=== PATIENT | male | born 1945 | race Caucasian/White ===

== ENCOUNTER 2016-09-04 09:44 | Inpatient (IN) | payer OTHER ==
[2016-09-04] VITALS (38 sets, daily range): BP systolic 101–163; BP diastolic 57–109
[~2016-09-04] VITALS: Ht 175.3 cm; Wt 99.8 kg
--- NOTE | ~2016-09-04 | EKG ---
[address] [address] ELECTROCARDIOGRAM REPORT Name: ROSALVA DALTON Room #: 245-P ADM IN M.R.#: [id number] Admission: 09/04/16 Attend Phys: Roula Perales MD Discharge: Date of : 41 Report #: [id number] THIS REPORT FOR: //name// [facility] ED Test Date: 2016-09-04 Test Time: 09:48:19 Pat Name: ROSALVA DALTON Department: Room: [facility] Gender: M Warp Hauler: BRENDON : 1945 Requested By: Arun Mcdowell Order Number: [id number] MD: Uche Saavedra Measurements Intervals [place] Rate: 123 P: CA: QRS: -79 QRSD: 178 T: 82 QT: 403 QTc: 577 Interpretive Statements Ventricular tachycardia Compared to ECG 08/16/2016 06:59:37 Ventricular tachycardia is now present Electronically Signed On 09-05-2016 8:16:26 CDT by Uche Saavedra [email or web address] <ELECTRONICALLY SIGNED> By: Uche Savaedra MD, [facility] 09/05/16 0816 0948 7 Uche Saavedra MD, FACC /EPI
--- NOTE | ~2016-09-04 | P ---
[facility] [place] [address] PROCEDURE REPORT Name: KRYSTLEROSALVA Room #: 244-P ADM IN M.R.#: [id number] Admission: 09/04/16 Attend Phys: Roula Perales MD Discharge: Date of : 43 Report #: [id number] THIS REPORT FOR: //name// CC: Silvano Perales DATE OF SERVICE: 09/06/2016 PREOPERATIVE DIAGNOSIS: Sustained ventricular tachycardia. POSTOPERATIVE DIAGNOSIS: Sustained ventricular tachycardia. HISTORY OF PRESENT ILLNESS: The patient is a 71-year-old with history of an ischemic cardiomyopathy status post ICD implantation for primary prevention of sudden cardiac . In May, he had an episode of ventricular tachycardia, at that time he underwent repeat catheterization and his coronary arteries and prior bypass graft were within normal limits. He was started on amiodarone and then had recurrence of VT and was admitted to [facility] and started on mexiletine, but a week later was readmitted to [facility] with sustained ventricular tachycardia. This was left bundle-branch block, negative concordance in the precordial leads, negative in leads II, III and aVF with a heart rate of 120 beats per minute. Adjustments were made to his medications. However, he has had several recurrent episodes of VT and was readmitted here a few days ago. He is here for a repeat VT ablation. His EF is noted to be 30-35% and he has a Medtronic single chamber ICD. ANESTHESIA: The patient underwent general anesthesia with no anesthesia related complications other than a nose bleed due to traumatic cannulation. This improved after anticoagulation was discontinued. The patient was prepped and draped in a sterile fashion. His ICD therapies were disabled and his ICD was programmed to the VVI 40 mode. Next, I obtained access to the right femoral artery times 1 and initially placed a short sheath and then placed a longer sheath that was 8 Slovak. In the right femoral vein, I placed a 6-Slovak and 8-Slovak short sheath and then in the left femoral vein, I placed a 7-Slovak and a 6-Slovak short sheath. I placed a decapolar catheter into the coronary sinus. I placed a quadripolar catheter into the right ventricle. I placed another quadripolar catheter at the level of the His bundle. Next, I placed a 4-mm Biosense Richardson SmartTouch ablation catheter into the right atrium and then I placed a PentaRay mapping catheter into the left ventricle via retrograde access after the patient was systemically heparinized and maintaining an ACT of 300-350. 3D MAPPING AND VT ACTIVATION MAPPING: Using the PentaRay, I created a detailed 3D geometry of the left ventricle and there was evidence of a large apical [facility] [address] [place] [address] PROCEDURE REPORT Name: ROSALVA DALTON Room #: 244-P [facility] IN M.R.#: [id number] Admission: 09/04/16 Attend Phys: Roula Perales MD Discharge: Date of : 43 Report #: [id number] septal and apical inferior infarct. Once I had delineated his myocardial substrate, the VT was induced and the VT was identical to the clinical VT. This VT was 540 milliseconds in cycle length with a left bundle branch block, negative concordance in the precordial leads, negative in II, III, aVF and positive in lead 1. The activation pattern demonstrated that there was breakthrough at the border zone at the inferior aspect of the scar at a very septal location. Based on the highly fractionated electrograms in this area, we started performing ablation using ThermoCool at 50 madrigal and 55 degrees. I finally found a location that demonstrated the earliest area of activation much earlier then we had found before and at this site, there was very fractionated electrograms. I decided to ablate here and within 30 seconds, the VT slowed by 10-15 beats per minute and then terminated. Next, I performed a basic EP study. Prior to starting the ablation, the patient had been in sinus rhythm with a sinus cycle length of 1126 milliseconds, PA interval 205 milliseconds, QRS duration 100 milliseconds, QT interval 525 milliseconds, AH interval 150 milliseconds, and HV interval 45 milliseconds, AV block was noted at 580 milliseconds and there was no VA conduction at 600 milliseconds. Post-ablation of the VT, I performed ventricular extrastimuli, ventricular ERP was noted at 220 milliseconds at a [address] cycle length and the VT1 was reinduced at 500/324/310. Again, this was the identical VT. I therefore started to remap this tachycardia and he degenerated into another VT, similar morphology with 380 milliseconds and therefore this was cardioverted with 200 joules with episcopalian of sinus rhythm and stable blood pressures post-cardioversion. Therefore, I decided to focus on the substrate and the area of scar where we had originally terminated the tachycardia. I performed approximately 12 minutes of continues ablation along this region and through areas of fractionated electrogram within this scar tissue until we had an impedance drops of 10 ohms there was a significant decrease in the ventricular amplitudes. While ablating somewhat more apically and somewhat more inferior to where it terminated, the VT came back and as I continued to ablate here, this slowed and terminated again. I focused on this area of scar tissue and I connected all the areas of prior ablation to homogenize the area of scar tissue. I also focused on the border zone between the normal and the scar tissue to element this potential future substrates for further ventricular arrhythmias. As such, the amplitude of the scar tissue in this area was significantly altered. I decided to perform additional testing. I performed ventricular stimulation at 3 cycle lengths at 450 milliseconds, 500 milliseconds and [address] cycle length with double ventricular extrastimuli. The patient no longer had his clinical VT inducible. We tested for a period of 30 minutes and we could no longer induce his ventricular tachycardia. So, things appeared to be acutely successful. Post-ablation, the patient was in sinus rhythm with a sinus cycle length of 1036 milliseconds, PA interval 220 milliseconds, QRS duration 100 milliseconds, QT interval 525 milliseconds, AH interval 130 milliseconds, and HV interval of 45 milliseconds. As such, all catheters and sheaths were pulled after the patient received protamine and hemostasis was obtained. His ICD was reinterrogated and therapies [facility] [address] [place] [address] PROCEDURE REPORT Name: KRYSTLEROSALVA Room #: 244-P [facility] IN [facility].#: [id number] Admission: 09/04/16 Attend Phys: Roula Perales MD Discharge: Date of : 43 Report #: [id number] were programmed on to their original settings. The patient was sent to the PACU on the ventilator because of his nose bleed as they wanted to ensure that this had resolved before extubating the patient. He will be monitored for this nose bleed by the anesthesiology service and they will dictate when extubation is appropriate. Otherwise, there were no issues related to the procedure. CONCLUSIONS: 1. Successful ablation of an ischemic VT arising from the inferior septal aspect of the left ventricle from a region of scar tissue from prior myocardial infarction. 2. Successful ICD programming. 3. Successful cardioversion of a nonclinical VT. 4. Clinical VT1 rendered noninducible with ventricular stimulation. 5. Normal SA moira function. 6. Normal AV moira function. 7. Normal His-Purkinje function. 8. No other inducible arrhythmias. By: [id number] Joe Coulter MD /nt
--- NOTE | ~2016-09-04 | D ---
[facility] [address] DISCHARGE SUMMARY Name: KRYSTLEROSALVA Room #: 205-P [facility] IN M.R.#: [id number] Admission: 09/04/16 Attend Phys: Roula Perales MD Discharge: 09/09/16 Date of : 43 Report #: [id number] THIS REPORT FOR: //name// CC: Silvano Perales DATE OF SERVICE: 09/09/2016 DISCHARGE DIAGNOSES: 1. Sustained ventricular tachycardia, status post ventricular tachycardia ablation. 2. Throat hematoma, now stable. 3. Severe epistaxis secondary to above, now resolved. 4. Acute on chronic systolic heart failure, improved. 5. Morbid obesity. 6. Hypertension. 7. Coronary artery disease with prior CABG. 8. Diabetes. 9. Mild protein-calorie malnutrition. CONSULTS: Cardiology, Dr. Martinez as well as EP, Dr. Coulter and ENT, Dr. Wilson. PROCEDURES: He had a CT depletion done on 09/06/2016, with complications of a tonsil hematoma and epistaxis. Direct laryngoscopy and excision of right tonsillar mucosal flap by Dr. Wilson, on 09/07/2016. HOSPITAL COURSE: The patient is a 71-year-old male with a history of coronary artery disease, prior CABG, history of ventricular tachycardia with ICD, was admitted for sustained V-Tach. Please see details of admission dictated by on 09/04/2016. The patient was admitted and cardiology and EP were both consulted. The patient underwent VT ablation on 09/07/2016, and had complications of a large tonsillar hematoma and epistaxis. He was subsequently monitored in the ICU and Dr. Wilson of ENT was consulted. On 09/07/2016, the patient had direct endoscopy and tonsillar flap excision. Subsequent to that, he had no further excessive bleeding and was extubated. For details of the hospital course, please see [facility]. His hemoglobin has been fairly stable, he has had no further evidence of bleed. He is now in sinus rhythm, has been cleared for discharge by cardiology, EP, and ENT. Changes in the medications include discontinuing mexiletine, but continuing amiodarone, metoprolol, and lisinopril. Also, hold his aspirin until because of his upper airway bleed. Otherwise, he denies any complaints. He is adamant about not having any home health on discharge. 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 As stated, he is refusing home health despite our multiple attempts to encourage him to utilize ____. [address] [address] DISCHARGE SUMMARY Name: ROSALVA DALTON Room #: 205-P [facility] IN .R.#: [id number] Admission: 09/04/16 Attend Phys: Roula Perales MD Discharge: 09/09/16 Date of : 43 Report #: [id number] DISCHARGE DISPOSITION: To home. DISCHARGE PHYSICAL EXAMINATION: VITAL SIGNS: Temperature of 97, pulse 69, blood pressure 157/67, and O2 sat 98% on room air. GENERAL: He is awake, alert, answering question appropriately, in no acute respiratory distress. HEENT: He has no evidence of bleed. Oropharynx is clear and his airway is patent. CARDIOVASCULAR: Regular rate and rhythm. No murmurs. LUNGS: Clear to auscultation bilaterally. No crackles or wheeze. ABDOMEN: Soft and obese. No distention or tenderness. EXTREMITIES: Decrease in edema. NEUROLOGIC: Nonfocal. DISCHARGE MEDICATIONS: Amiodarone 400 mg daily, Lipitor 40 daily, Lasix 40 daily, lisinopril 20 daily, metformin 1000 mg b.i.d., Toprol-XL 100 daily, Niacin 500 daily, omeprazole 40 daily, and Hytrin 5 daily. DIET: Diabetic, low sodium cardiac diet. ACTIVITY: No heavy lifting and also additional restrictions per cardiology. FOLLOWUP: With primary care in 1 week with repeat labs. Follow up with cardiology in 1 week and to seek immediate medical attention if symptoms worsen, recur or if he has any significant medical concerns. Discharge plan took 40 minutes. By: 39 [id number] My Sherin Perales MD /nt
--- NOTE | ~2016-09-04 | HC ---
[facility] [place] [address] CONSULTATION Name: MELECIO MARINO Room #: 245-P ADM IN M.R.#: [id number] Admission: 09/04/16 Attend Phys: Roula Perales MD Discharge: Date of : 43 Report #: [id number] THIS REPORT FOR: //name// CC: Silvano Perales REASON FOR CONSULTATION: Sustained VT. HISTORY OF PRESENT ILLNESS: The patient is a 71-year-old ischemic cardiomyopathy, history of prior sustained ventricular tachycardia who I saw in the hospital recently. He presents today with continued palpitations. Based on his device interrogation, he went into ventricular tachycardia last night, but the device was not able to further ATP ____ of it. I did program a low VT zone from 120 to 160 beats per minute, where he only receives ATP. He presented to the Emergency Room where he was in VT, left bundle branch block, negative concordance in the precordial leads, negative in II, III, and aVF consistent with his prior VT episode. In the ICU, I performed antitachycardic pacing and was able to terminate the tachycardia was aggressive ramp pacing. He is currently in sinus rhythm. He denies any chest pain. He has been having some shortness of breath for the past few days. He denies PND, orthopnea. REVIEW OF SYSTEMS: Twelve-point review of systems was performed and it was negative other than what I mentioned above. PAST MEDICAL HISTORY: 1. Ischemic cardiomyopathy. 2. VT. SOCIAL HISTORY: He does not smoke. FAMILY HISTORY: Noncontributory. ALLERGIES: CODEINE. MEDICATIONS: Have been reviewed, which include amiodarone and ____. PHYSICAL EXAMINATION: VITAL SIGNS: He is afebrile, pulse 67, respirations 17, blood pressure 144/76, sats 98%. GENERAL: He is in no acute distress. HEENT: Oropharynx is clear. NECK: Supple, no thyromegaly. HEART: Regular rate and rhythm with no murmurs, rubs, gallops. LUNGS: Clear to auscultation bilaterally. ABDOMEN: Soft, nontender, nondistended with no hepatosplenomegaly. EXTREMITIES: No clubbing, cyanosis, or edema. [facility] [address] [place] [address] CONSULTATION Name: MELECIO MARINO Room #: 245-P [facility] IN M.R.#: [id number] Admission: 09/04/16 Attend Phys: Roula Perales MD Discharge: Date of : 43 Report #: [id number] NEUROLOGIC: Cranial nerves 2-12 are intact. LABORATORY DATA: White count 7.3, hemoglobin 13, platelets 303. Troponin is 0.14. His INR is 1.0. His creatinine is 1.7. His AST is 41, ALT 182, alkaline phosphatase 335. BNP is 10,390. IMPRESSION: In summary, Melecio Marino is a 71-year-old with known ischemic cardiomyopathy and sustained ventricular tachycardia that I was able to successfully convert with antitachycardic pacing today. We will monitor him today in the ICU, and if he is remaining in sinus rhythm, he can move to the CCU tomorrow morning. In terms of his troponin, this is likely from the ventricular tachycardia and he does not require further ischemic testing. In terms of his ventricular tachycardia, we have currently failed antiarrhythmic drug therapy, and therefore, I have recommended that he undergo an ablation on Friday. He will need to be n.p.o. after midnight for the Friday morning procedure. We discussed the details of the procedure including the risks, which include but not limited to bleeding, vascular damage, cardiac perforation, stroke, RI, and . He understands these risks and is willing to proceed. By: [id number] Joe Coulter MD /nt
--- NOTE | ~2016-09-04 | H ---
[facility] [place] [address] HISTORY AND PHYSICAL Name: ROSALVA DALTON Room #: 244-P ADM IN M.R.#: [id number] Admission: 09/04/16 Attend Phys: Roula Perales MD Discharge: Date of : 43 Report #: [id number] THIS REPORT FOR: //name// CC: Silvano Perales DATE OF SERVICE: 09/07/2016 REASON FOR CONSULTATION: Bleeding after intubation. HISTORY OF PRESENT ILLNESS: The patient is a 71-year-old male with a history of ischemic cardiomyopathy who had sustained ventricular tachycardia, has an AICD in place. He has had problems with ongoing palpitations and was brought for EP studies for ablation. During his procedure, it was noted that he was very difficult to intubate. Apparently during the case, he had bleeding from his mouth and nose and was then transferred after his ablation procedure to the intensive care unit where he continued to have some bleeding. They did use Rico-Synephrine during the ablation procedure. I was called by the ICU nurse saying that he had continued bleeding and had a suction catheter in his oropharynx with some ongoing oozing and bleeding. Initial report was that he has lost 100 mL of blood during the ablation procedure and that he continued to trickle and ooze. I asked the nurse to place him in a reverse Trendelenburg position and his bleeding had stopped. The anesthesiologist that was on for the evening, Dr. Brar had called me with concerns about the patient because of a very difficult airway intubation that had been reported to her during the case and with bleeding she was uncomfortable with proceeding with an extubation attempt on a Friday night where the patient had been very difficult to intubate during the case. ____ CT angio treating this as a potential penetrating trauma in zone 2. The patient went for CT scan of the neck in the evening and the CT scan report back to me was that there was no arterial injury, but soft tissue swelling in the right hypopharynx with gas in the parapharyngeal soft tissues without contrast extravasation at the time of the CTA. This was the report that was given to me last night. Because of the difficult airway intubation and the patient's stable condition following his ablation, it was elected to wait until a more controlled setting could be obtained and I have come to see him now this morning for discussion about his hypopharyngeal injury. PHYSICAL EXAMINATION: GENERAL: He is sedated and ventilated. He is having no active bleeding. VITAL SIGNS: His heart rate is 55, his blood pressure is 112/46, oxygen saturation is 99%. He is sedated with propofol. HEENT: Head is otherwise normocephalic. He is having no active bleeding at this time. The oral cavity examination shows that the endotracheal tube does ____ of the tonsil. [address] [address] HISTORY AND PHYSICAL Name: ROSALVA DALTON Room #: 244-P [facility] IN M.R.#: [id number] Admission: 09/04/16 Attend Phys: Roula Perales MD Discharge: Date of : 43 Report #: [id number] ASSESSMENT: Hypopharyngeal mucosal injury, presumed through and through mucosal injury, most likely along the capsule of the tonsil and through the hypopharynx. PLAN: We will proceed with evaluation under general anesthetic and potential tonsillectomy based on withdrawing the tube and seeing if there is significant bleeding with removing the tube from the hypopharyngeal injury, likely some cauterization will be necessary, with the CTA it does not appear that there is significant arterial injury. <ELECTRONICALLY SIGNED> By: Michael Wilson MD 09/07/16 1624 1127 1232 Michael Wilson MD /nt
--- NOTE | ~2016-09-04 | O ---
[facility] [place] [address] OPERATIVE REPORT Name: ROSALVA DALTON Room #: 205-P [facility] IN M.R.#: [id number] Admission: 09/04/16 Attend Phys: Roula Perales MD Discharge: Date of : 43 Report #: [id number] THIS REPORT FOR: //name// CC: Silvano Perales MD DATE OF SERVICE: 09/07/2016 PREOPERATIVE DIAGNOSES: Hypopharyngeal and oropharyngeal injury. POSTOPERATIVE DIAGNOSES: Hypopharyngeal and oropharyngeal injury plus mucosal flap, right tonsil. PROCEDURES: 1. Direct laryngoscopy with exchange of endotracheal tube. 2. Flexible fiberoptic tracheoscopy. 3. Excision of right tonsillar mucosal flap. DESCRIPTION OF PROCEDURE: The patient was brought to the operating room. He is in a normal supine position already, he has been sedated with propofol. He is currently intubated and is ventilated. The patient was transferred to the operating room table with skin paddles placed for potential defibrillation as the patient does have an AICD in place and may need cautery. The patient's oral cavity is examined. His tongue is edematous on the right side particularly, has pharyngeal edema on the right side. A Dedo laryngoscope is used to examine the hypopharynx and larynx. The endotracheal tube is submucosal for approximately 8 cm of its length beginning at the right superior portion of the tonsillar pillar and extending out the lateral pharyngeal wall back into the larynx and into the trachea. The band of mucosa is approximately 2 cm in width and 5 or 6 mm in thickness along the entire length of the submucosal tunnel that the endotracheal tube had created. The hypopharynx was again examined this time with a GlideScope. The GlideScope shows an adequate airway with endotracheal tube in good position through the larynx, which is otherwise normal. A flexible fiberoptic bronchoscope was then utilized with a 7.5 endotracheal tube over the top of the bronchoscope. The bronchoscope was then utilized to gain access through the larynx and over the existing tracheotomy tube. The 7.5 tube was then advanced over the scope to the glottis. The existing endotracheal tube was then withdrawn and the new endotracheal tube was placed through the glottis. The bronchoscope was then removed from the endotracheal tube and this was used as the new endotracheal tube for ventilation during the procedure. The oral cavity was then opened with a McIvor mouth gag. The hypopharynx and oropharynx [address] [address] OPERATIVE REPORT Name: ROSALVA DALTON Bita Room #: 205-P [facility] IN M.R.#: [id number] Admission: 09/04/16 Attend Phys: Roula Perales MD Discharge: Date of : 41 Report #: [id number] were examined where the tunnel is. There is no evidence of active bleeding from the removal of the tube ____. There is a flap of tonsil tissue lateral pharyngeal wall mucosa that is approximately 2 cm in length and has flaps down from where the endotracheal tube has created a submucosal tunnel superiorly. This flap of tissue is removed utilizing bipolar cautery. There was no evidence of significant bleeding. Bipolar cautery was used for ____ along the right tonsil laterally. The hypopharynx and oral cavity were then irrigated copiously with saline. There was no evidence of active bleeding. The patient was then awoken from anesthesia, extubated and transferred stable without any evidence of stridor on extubation or bleeding. The patient will be observed for airway observation overnight in the ICU. By: [id number] Michael Wilson MD /nt
[~2016-09-04 09:44] MED LIST: ACETAMINOPHEN325 M1 PO; ADULT LOW DOSE81 MG PO; ALDACTONE25 MG PO; ASPIR 8181 MG PO; ASPIR-TRIN325 MG PO; ASPIRIN325 PO; ATORVASTATIN CA40 MG PO; CIPROFLOXACIN500 M3 PO; ENDUR-ACIN500 MG PO; FLAGYL500 MG PO; FUROSEMIDE 40 M40 MG PO; HYTRIN 5 M5 MG/1 CAP PO; K-DUR 20 MEQ T20 MEQ PO; LASIX 40 MG TAB40 M1 PO; LISINOPRIL20 MG PO; LISINOPRIL40 MG PO; LOPRESSOR100 MG PO; MAGNESIUM HYDROXIDE PO; METFORMIN HCL500 MG PO; MEXILETINE 150150 MG PO; NIACIN50 MG PO; OMEGA-31000 M1 PO; OMEPRAZOLE40 MG PO; PACERONE 200 M200 M1 PO; PERCOCET 7.5-31 EACH PO; POTASSIUM20 PO; PRINIVIL20 MG PO; RANITIDINE 150150 MG PO; SPIRIVA18 MCG INH; TOPROL XL100 MG PO; ZOCOR40 MG PO
[2016-09-04 10:18] LABS: ABSOLUTE NEUTROPHILS 5.4 thou/uL (1.4-8.2); EOSINOPHILS 0.6 % (0.0-3.0); HEMATOCRIT 40.2 % (42.0-52.0); HEMOGLOBIN 13.4 gm/dL (14.0-18.0); LYMPHOCYTES 17.3 % (24.0-44.0); MCH 30.8 pg (26.0-34.0); MCHC 33.4 g/dL (28.0-37.0); MCV 92.1 fL (80.0-100.0); PLATELET COUNT 303 thou/uL (150-400); POLYS 74.1 % (36.0-66.0); RBC 4.36 mil/uL (4.50-6.00); RDW 14.7 % (10.5-14.5); WBC 7.3 thou/uL (4.0-11.0)
[2016-09-04 10:21] LABS: MANUAL DIFF NO
[2016-09-04 10:36] LABS: APTT 27.1 Seconds (24.5-32.8); PROTIME 10.6 Seconds (9.3-11.4)
[2016-09-04 10:37] LABS: CALCIUM 9.4 mg/dL (8.5-10.1); CREATININE 1.7 mg/dL (0.6-1.3)
[2016-09-04 10:56] LABS: ALBUMIN 3.3 g/dL (3.4-5.0); CK-MB MASS 1.7 ng/mL (<0.5-3.6); MAGNESIUM 2.1 mg/dL (1.8-2.4); TOTAL BILIRUBIN 1.1 mg/dL (<0.1-1.0); TOTAL PROTEIN 7.1 g/dL (6.4-8.2); TROPONIN-I 0.13 ng/mL (<0.04-0.07)
[2016-09-05] VITALS (14 sets, daily range): BP systolic 119–173; BP diastolic 60–103
[2016-09-05 04:13] LABS: HEMATOCRIT 38.8 % (42.0-52.0); HEMOGLOBIN 12.8 gm/dL (14.0-18.0); MCH 30.5 pg (26.0-34.0); MCHC 32.9 g/dL (28.0-37.0); MCV 92.8 fL (80.0-100.0); RBC 4.19 mil/uL (4.50-6.00); WBC 7.7 thou/uL (4.0-11.0)
[2016-09-05 04:40] LABS: ALBUMIN 3.1 g/dL (3.4-5.0); CALCIUM 8.9 mg/dL (8.5-10.1); CREATININE 1.4 mg/dL (0.6-1.3); POTASSIUM 4.1 mmol/L (3.5-5.1)
[2016-09-06] VITALS (11 sets, daily range): BP systolic 109–170; BP diastolic 58–96
[2016-09-06 03:18] LABS: HEMATOCRIT 38.9 % (42.0-52.0); HEMOGLOBIN 12.8 gm/dL (14.0-18.0); MCH 30.5 pg (26.0-34.0); MCHC 32.9 g/dL (28.0-37.0); MCV 92.9 fL (80.0-100.0); RBC 4.19 mil/uL (4.50-6.00); RDW 15.2 % (10.5-14.5)
[2016-09-06 03:48] LABS: CALCIUM 8.9 mg/dL (8.5-10.1); CREATININE 1.3 mg/dL (0.6-1.3); POTASSIUM 4.2 mmol/L (3.5-5.1)
[2016-09-06 15:32] LABS: HEMATOCRIT 36.1 % (42.0-52.0); HEMOGLOBIN 11.8 gm/dL (14.0-18.0); MCH 30.7 pg (26.0-34.0); MCHC 32.8 g/dL (28.0-37.0); MCV 93.8 fL (80.0-100.0); RBC 3.85 mil/uL (4.50-6.00); RDW 15.4 % (10.5-14.5); WBC 13.3 thou/uL (4.0-11.0)
[2016-09-06 22:10] LABS: HEMATOCRIT 37.8 % (42.0-52.0); HEMOGLOBIN 12.5 gm/dL (14.0-18.0)
[2016-09-07] VITALS (22 sets, daily range): BP systolic 104–142; BP diastolic 48–78
[2016-09-07 05:09] LABS: HEMATOCRIT 38.5 % (42.0-52.0); HEMOGLOBIN 12.5 gm/dL (14.0-18.0); MCH 30.5 pg (26.0-34.0); MCHC 32.5 g/dL (28.0-37.0); MCV 93.9 fL (80.0-100.0); RBC 4.1 mil/uL (4.50-6.00); RDW 15.5 % (10.5-14.5); WBC 17.8 thou/uL (4.0-11.0)
[2016-09-07 05:29] LABS: CREATININE 1.4 mg/dL (0.6-1.3); POTASSIUM 4.5 mmol/L (3.5-5.1)
[2016-09-07 10:28] LABS: HEMATOCRIT 37.1 % (42.0-52.0); HEMOGLOBIN 12.1 gm/dL (14.0-18.0)
[2016-09-08] VITALS (18 sets, daily range): BP systolic 110–142; BP diastolic 53–86
[2016-09-08 05:36] LABS: HEMATOCRIT 38.8 % (42.0-52.0); HEMOGLOBIN 12.3 gm/dL (14.0-18.0); MCH 30.1 pg (26.0-34.0); MCHC 31.8 g/dL (28.0-37.0); MCV 94.9 fL (80.0-100.0); RBC 4.09 mil/uL (4.50-6.00); RDW 15.5 % (10.5-14.5); WBC 17.1 thou/uL (4.0-11.0)
[2016-09-08 05:53] LABS: CALCIUM 7.6 mg/dL (8.5-10.1); CREATININE 1.2 mg/dL (0.6-1.3); POTASSIUM 4.4 mmol/L (3.5-5.1)
[2016-09-09 03:39] LABS: HEMATOCRIT 39.5 % (42.0-52.0); HEMOGLOBIN 12.5 gm/dL (14.0-18.0); MCH 30.1 pg (26.0-34.0); MCHC 31.7 g/dL (28.0-37.0); MCV 94.8 fL (80.0-100.0); RBC 4.16 mil/uL (4.50-6.00); RDW 15.4 % (10.5-14.5); WBC 13.6 thou/uL (4.0-11.0)
[2016-09-09 03:46] VITALS: BP 133/77
[2016-09-09 03:54] LABS: CALCIUM 8.7 mg/dL (8.5-10.1); CREATININE 1.2 mg/dL (0.6-1.3); POTASSIUM 4.2 mmol/L (3.5-5.1)
[2016-09-09 08:10] VITALS: BP 157/67
[2016-09-09 11:20] VITALS: BP 120/67
[2016-09-09 13:03] VITALS: BP 157/67
[2016-09-09 13:14] VITALS: BP 157/67
[2016-09-09 13:36] VITALS: BP 157/67
== END 2016-09-09 15:00 | disposition home or self-care (01) | DRG 228 ==
LOC: ER 09:44 → EROBS 10:30 → ICU 10:30 → 2N 10:30 → 4S 10:30 → ICU 12:47 → 2N 09-05 10:25 → ICU 09-06 15:26 → 2N 09-08 17:27
PROVIDERS: Emergency Medicine; Family Medicine; Internal Medicine Cardiovascular Disease; Internal Medicine Pulmonary Disease; Nurse Practitioner Gerontology
PROC: 5A1935Z Respiratory Ventilation, Less than 24 Consecutive Hours (ICD-10-PCS; 2016-09-06)
PROC: 0BH17EZ Insertion of Endotracheal Airway into Trachea, Via Natural or Artificial Opening (ICD-10-PCS; 2016-09-06)
PROC: 0CP Mouth and Throat, Removal (ICD-10-PCS; principal; 2016-09-07)
PROC: 0B21XEZ Change Endotracheal Airway in Trachea, External Approach (ICD-10-PCS; principal; 2016-09-07)
PROC: 025 Heart and Great Vessels, Destruction (ICD-10-PCS; principal; 2016-09-07)
PROC: 5A2204Z Restoration of Cardiac Rhythm, Single (ICD-10-PCS; principal; 2016-09-07)
PROC: 0CBM8ZX Excision of Pharynx, Via Natural or Artificial Opening Endoscopic, Diagnostic (ICD-10-PCS; principal; 2016-09-07)
PROC: 4B02XTZ Measurement of Cardiac Defibrillator, External Approach (ICD-10-PCS; principal; 2016-09-07)
DX: I47.2 Ventricular tachycardia (principal); I50.23 Acute on chronic systolic (congestive) heart failure; I13.0 Hypertensive heart and chronic kidney disease with heart failure and stage 1 through stage 4 chronic kidney disease, or unspecified chronic kidney disease; I97.52 Accidental puncture and laceration of a circulatory system organ or structure during other procedure; E44.1 Mild protein-calorie malnutrition; N17.9 Acute kidney failure, unspecified; J95.831 Postprocedural hemorrhage of a respiratory system organ or structure following other procedure; I47.1 Supraventricular tachycardia; I25.10 Atherosclerotic heart disease of native coronary artery without angina pectoris; G47.33 Obstructive sleep apnea (adult) (pediatric); E78.5 Hyperlipidemia, unspecified; I25.5 Ischemic cardiomyopathy; R04.0 Epistaxis; E66.01 Morbid (severe) obesity due to excess calories; E11.65 Type 2 diabetes mellitus with hyperglycemia; N18.9 Chronic kidney disease, unspecified; E11.22 Type 2 diabetes mellitus with diabetic chronic kidney disease; S10.0XXA Contusion of throat, initial encounter; Z95.1 Presence of aortocoronary bypass graft; Z90.49 Acquired absence of other specified parts of digestive tract; Z95.810 Presence of automatic (implantable) cardiac defibrillator; Z88.6 Allergy status to analgesic agent; Z87.891 Personal history of nicotine dependence; Z68.32 Body mass index [BMI] 32.0-32.9, adult; Z87.81 Personal history of (healed) traumatic fracture; Z82.49 Family history of ischemic heart disease and other diseases of the circulatory system; Z79.82 Long term (current) use of aspirin; Z79.899 Other long term (current) drug therapy; X58.XXXA Exposure to other specified factors, initial encounter; Y93.89 Activity, other specified; Y92.89 Other specified places as the place of occurrence of the external cause; Y99.8 Other external cause status
CPT/HCPCS: 10078; 10081; 50101; 50382; 50414; 50455; 50612; 51057; 51130; 51225; 51771; 53000; 53078; 54118; 56460; 56524; 56527; 56528; 56530; 57095; 62110; 62900; 64031; 65020; 65040; 70005